=== PATIENT | male | born 2000 | race Caucasian/White ===

== ENCOUNTER 2024-09-05 13:09 | Outpatient (CLI) | payer OTHER, SELFPAY | END 2024-09-05 13:10 | disposition home or self-care (01) | PROVIDERS: Visit Provider Physician Assistant | DX: R10.9 Unspecified abdominal pain (principal); R19.7 Diarrhea, unspecified | CPT/HCPCS: 80053; 83690; 86140 ==

== ENCOUNTER 2024-09-05 13:59 | Emergency (ER) | payer OTHER, SELFPAY ==
[2024-09-05 14:09] VITALS: BP 139/82; PULSE 75; RESP 20; TEMP 36.8; O2SAT 98; BMI 29.5
--- NOTE | 2024-09-05 14:21 | CRLHL7_ITS ---
For Patients: As a result of the Century Cures Act, medical imaging exams and procedure reports are released immediately into your electronic medical record. You may view this report before your referring provider. If you have questions, please contact your health care provider. 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 No suspicious hepatic lesions. The gallbladder and biliary system are unremarkable. The spleen, pancreas, adrenal glands, kidneys, ureters, decompressed bladder, seminal vesicles, prostate, and visualized external genitalia are unremarkable in appearance. Tiny hiatal hernia. There is no evidence of bowel obstruction. The appendix is normal in appearance. Questionable mild circumferential wall thickening of the colon without pericolonic fat stranding. No free air, significant free fluid, or abscess. There are few small mesenteric lymph nodes, likely reactive. No pathologically enlarged lymph nodes throughout the abdomen or pelvis. The vasculature is unremarkable. Soft tissue/musculoskeletal: Tiny fat containing umbilical and periumbilical hernias. Small fat containing right inguinal hernia. No acute fracture or malalignment. Tiny peripherally sclerotic lesion in the left iliac bone with benign features. Impression: 1. Questionable mild circumferential wall thickening of the colon without pericolonic fat stranding, a nonspecific finding which can be seen with colitis. 2. No evidence of bowel obstruction. 3. Additional incidental findings as detailed above. Please note that all CT scans at this facility use dose modulation, iterative reconstruction, and/or weight-based dosing when appropriate to reduce radiation dose to as low as reasonably achievable. Dictated by Gabo Washington MD @ 09/05/2024 3:12:27 PM (Electronically Signed)
--- NOTE | 2024-09-05 14:24 | ED_ITS ---
HPI - General Adult General Date Seen: 09/05/24 Chief complaint: Abdominal Pain Stated complaint: abdominal pain Time Seen by Provider: 09/05/24 14:00 History of Present Illness HPI narrative: Patient is a 23-year-old here with mother for evaluation of abdominal pain and diarrhea. Of note, he has been on Mounjaro for a little bit, dose was increased a week ago. He notes that he was symptomatic after that dose increase, but abruptly became worse 2 days ago with significant diarrhea and upper abdominal pain. He does not have a history of any abdominal surgeries. He does have a history of significant hidradenitis suppurativa and is on Humira, also recently started. He has not had fevers, vomiting, bloody stools. He has had some nausea. He was at urgent care where an abdominal film suggested ileus but CT was recommended to rule out obstruction. He has been taking Tylenol which helps some, pain persists however. Related Data Home Medications ?Medication ?Instructions ?Recorded ?Confirmed Unobtainable 09/05/24 09/05/24 Allergies Allergy/AdvReac Type Severity Reaction Status Date / Time No Known Drug Allergies Allergy Verified 09/05/24 12:37 Review of Systems Status of ROS: Reports: 10 or more systems reviewed and unremarkable except as noted in History and below Exam Narrative: Exam Narrative: Vital signs reviewed In general, alert, nontoxic young man. Looks comfortable. Head: Normocephalic, atraumatic. Eyes: Sclera clear. Pupils equal and reactive. ENT: Mucous membranes moist. Neck: Supple without adenopathy. Heart: Regular rate and rhythm without murmur. Lungs: Clear. No increased work of breathing, crackles or wheezes. Abdomen: Soft, nondistended. Bowel sounds are quiet. He has some epigastric tenderness primarily without rebound guarding or rigidity. Extremities: Well perfused, pulses intact. No significant edema. Neurologic: Alert, conversant. Speech fluent, face symmetric. Moves all extremities equally. Skin: Warm, dry well perfused. Affect: Normal. Const: Vital Signs, click to edit/add: Vital Signs - 24 hr 09/05/24 14:09 Temperature 98.3 F Pulse Rate [Pulse Oximeter] 75 Respiratory Rate 20 Blood Pressure [Ri ght Upper Arm] 139/82 Pulse Oximetry 98 Oxygen Delivery Me thod Room Air Course Course ED Course: Labs were ordered through urgent care, I will keep an eye out for those. I have ordered a CT scan of the abdomen and pelvis with contrast as well as L normal saline and Toradol. Symptoms seem likely medication related versus superimposed viral infection, rule out intra-abdominal process such as small bowel obstruction, colitis, appendicitis, pancreatitis. He had a L of normal saline, Toradol, feels markedly improved. I reviewed his labs from urgent care including a CBC, comprehensive metabolic panel, lipase, CRP and these are all normal. I also did a lactate which was normal. CT scan of the abdomen by my review did not show any significant inflammatory changes or signs of obstruction. Read as essentially normal by Radiology, maybe a little bit of stranding around the colon nonspecific colitis. Overall, symptoms may be viral or may be related to the Mounjaro. He thinks he will reduce the dose to help with side effects. I prescribed some Toradol from [facility] since he found that helpful here. Reasons to return reviewed. Primary care follow-up recommended if not improving over the next few days. Vital Signs Vital signs: Initial Vital Signs Temperature 98.3 F 09/05/24 14:09 Temperature Source Temporal Artery Scan 09/05/24 14:09 Pulse Rate 75 09/05/24 14:09 Pulse Rhythm Regular 09/05/24 14:09 Respiratory Rate 20 09/05/24 14:09 Blood Pressure 139/82 09/05/24 14:09 Blood Pressure Mean 101 09/05/24 14:09 Blood Pressure Position Supine 09/05/24 14:09 Pulse Oximetry 98 09/05/24 14:09 Oxygen Delivery Method Room Air 09/05/24 14:09 Vital Signs Temperature 98.3 F 09/05/24 14:09 Pulse Rate 75 09/05/24 14:09 Respiratory Rate 20 09/05/24 14:09 Blood Pressure 139/82 09/05/24 14:09 Pulse Oximetry 98 09/05/24 14:09 Oxygen Delivery Method Room Air 09/05/24 14:09 Temperature 98.3 F 09/05/24 14:09 Pulse Rate 75 09/05/24 14:09 Respiratory Rate 20 09/05/24 14:09 Blood Pressure 139/82 09/05/24 14:09 Pulse Oximetry 98 09/05/24 14:09 Oxygen Delivery Method Room Air 09/05/24 14:09 Medications Administered Medications: Discontinued Medications Generic Name Dose Route Start Last Admin Trade Name Devonq PRN Reason Stop Dose Admin Sodium Chloride 1,000 mls @ 1,000 mls/hr 09/05/24 14:30 09/05/24 15:26 0.9 % Sodium Chloride 1000 Ml IV 09/05/24 15:29 Infused .Q1H PEG Infusion Ketorolac Tromethamine 15 mg 09/05/24 14:20 09/05/24 14:53 Ketorolac 15 Mg/Ml Inj IVP 09/05/24 14:21 15 mg ONCE ONE Administration Medical Decision Making Lab Data Labs: Lab Results 09/05/24 Range/Units 14:35 Lactate 1.0 (0.5-1.9) mmol/L Imaging Data CT scan - abdomen: Attestation: I have reviewed the pertinent imaging results. Radiologist's impression: [place] [address] Diagnostic Imaging Report Patient: Stanley Cevallos MR#: [id number] : 2000 Acct:[id number] Loc: ED Service Date: 09/05/[address]: Ordering Physician: Mallory Gold M.D. Date of Service: 09/05/24 Procedure(s): CT abdomen pelvis w con Accession Number(s): [id number] cc: Mallory Gold M.D.; Provider,Not a Local~ For Patients: As a result of the Cures Act, medical imaging exams and procedure reports are released immediately into your electronic medical record. You may view this report before your referring provider. If you have questions, please contact your health care provider. 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 No suspicious hepatic lesions. The gallbladder and biliary system are unremarkable. The spleen, pancreas, adrenal glands, kidneys, ureters, decompressed bladder, seminal vesicles, prostate, and visualized external genitalia are unremarkable in appearance. Tiny hiatal hernia. There is no evidence of bowel obstruction. The appendix is normal in appearance. Questionable mild circumferential wall thickening of the colon without pericolonic fat stranding. No free air, significant free fluid, or abscess. There are few small mesenteric lymph nodes, likely reactive. No pathologically enlarged lymph nodes throughout the abdomen or pelvis. The vasculature is unremarkable. Soft tissue/musculoskeletal: Tiny fat containing umbilical and periumbilical hernias. Small fat containing right inguinal hernia. No acute fracture or malalignment. Tiny peripherally sclerotic lesion in the left iliac bone with benign features. Impression: 1. Questionable mild circumferential wall thickening of the colon without pericolonic fat stranding, a nonspecific finding which can be seen with colitis. 2. No evidence of bowel obstruction. 3. Additional incidental findings as detailed above. Please note that all CT scans at this facility use dose modulation, iterative reconstruction, and/or weight-based dosing when appropriate to reduce radiation dose to as low as reasonably achievable. Dictated by Gabo Washington MD @ 09/05/2024 3:12:27 PM Discharge Plan Discharge Clinical Impression: Abdominal pain, Diarrhea Patient Disposition: Home, Self-Care Condition: Improved Instructions: Acute Diarrhea (ED), Abdominal Pain (ED) Additional Instructions: You can use Toradol if needed for abdominal cramping, or you can stick with Tylenol. If you are getting worse instead of gradually better you should be seen again, for example if you have severe uncontrolled pain, uncontrolled vomiting, high fevers, bloody stools. Prescriptions: No Action Unobtainable Follow Up/Referrals: Provider,Not a Local [Primary Care Provider] - Stand Alone Forms: [employer] Info Instructions
[2024-09-05] MEDS: 0.9 % SODIUM CHLORIDE 1000 ml 1,000 ML IV (14:52)
[2024-09-05] MEDS: KETOROLAC 15 MG/ML inj IVP (14:53)
== END 2024-09-05 15:38 | disposition home or self-care (01) ==
PROVIDERS: Emergency Provider Emergency Medicine
DX: R10.9 Unspecified abdominal pain (principal); R19.7 Diarrhea, unspecified
CPT/HCPCS: 74177; 80053; 83605; 83690; 86140; 96374; 99284; 99285; J1885; J7030; Q9967